=== PATIENT | male | born 1970 | race Caucasian/White ===

== ENCOUNTER 2022-08-05 06:33 | Day surgery (SDC) | payer BC ==
[~2022-08-05 06:33] MED LIST: Lactated Ringers 1,000 ML IV SCH; ceFAZolin 2 GM in Sodium Chloride 0.9% 50 ML IV ONE
[2022-08-05] MEDS ORDERED: fentaNYL 100 MCG/2 ML SDV ONE (07:13)
[2022-08-05] MEDS ORDERED: propofoL 50 ML ONE (07:13)
[2022-08-05] MEDS ORDERED: Lidocaine 2% 5 ML SDV ONE (07:13)
[2022-08-05] MEDS ORDERED: Sodium Chloride 0.9% 10 ML SDV IV SCH (07:15)
[2022-08-05] MEDS ORDERED: droPERidol 5 MG/2 ML SDV IVPUSH PRN (07:22)
[2022-08-05] MEDS ORDERED: Naloxone 0.4 MG/ML SDV IVPUSH PRN (07:22)
[2022-08-05] MEDS ORDERED: Morphine 2 MG/ML SYRINGE IVPUSH PRN (07:22)
[2022-08-05] MEDS ORDERED: Ondansetron 4 MG/2 ML SDV IVPUSH PRN (07:22)
[2022-08-05] MEDS ORDERED: Albuterol 0.083% 2.5 MG/3 ML Neb Soln NEB PRN (07:22)
[2022-08-05] MEDS ORDERED: Metoclopramide 10 MG/2 ML SDV IVPUSH PRN (07:22)
[2022-08-05] MEDS ORDERED: fentaNYL 50 MCG/ML SDV IVPUSH PRN (07:22)
[2022-08-05] MEDS ORDERED: HYDROmorphone 1 MG/ML Syringe IVPUSH PRN (07:22)
[2022-08-05] MEDS ORDERED: Bupivacaine 0.5% 30 ML SDV ONE (07:36)
[2022-08-05] MEDS ORDERED: Lidocaine 1% 20 ML MDV ONE (07:36)
[2022-08-05] MEDS ORDERED: Sodium Chloride 0.9% 500 ML IV SCH (07:45)
[2022-08-05] MEDS ORDERED: Water For Injection, Sterile 20 ML ONE ×2 (07:56→08:16)
[2022-08-05] MEDS ORDERED: ceFAZolin 2 GM Vial ONE (07:56)
[2022-08-05] MEDS ORDERED: Dexmedetomidine 200 MCG/2 ML SDV ONE (08:17)
[2022-08-05] MEDS ORDERED: Propofol 200 MG/20 ML SDV ONE (08:34)
== END 2022-08-05 10:50 | disposition home or self-care (01) ==
LOC: MW.SDS 06:33
PROVIDERS: ATTEND Surgery
DX: Z49.02 Encounter for fitting and adjustment of peritoneal dialysis catheter (principal); I12.0 Hypertensive chronic kidney disease with stage 5 chronic kidney disease or end stage renal disease; N18.6 End stage renal disease; I25.10 Atherosclerotic heart disease of native coronary artery without angina pectoris; J44.9 Chronic obstructive pulmonary disease, unspecified; F17.210 Nicotine dependence, cigarettes, uncomplicated; E11.22 Type 2 diabetes mellitus with diabetic chronic kidney disease; E66.9 Obesity, unspecified; Z68.30 Body mass index [BMI] 30.0-30.9, adult; Z95.5 Presence of coronary angioplasty implant and graft; Z79.899 Other long term (current) drug therapy
CPT/HCPCS: 36589; 82947; J0690; J2704; J3010; J3490; J7040; J7120